=== PATIENT | female | born 1970 | race Caucasian/White ===

== ENCOUNTER 2021-11-02 15:45 | Emergency (ER) | payer SELFPAY ==
[2021-11-02] MEDS ORDERED: Acetaminophen/HYDROcodone 325-5 MG Tab PO ONE (16:06)
[2021-11-02] MEDS ORDERED: Ondansetron 4 MG Tab.DIS PO ONE (16:06)
--- NOTE | 2021-11-02 16:15 | EDM.PDOC ---
ED HPI GENERAL MEDICAL PROBLEM - General Chief Complaint: General Stated Complaint: FELL AND HIT THE GROUND Time Seen by Provider: 11/02/21 15:51 Source of Information: Reports: Patient History Limitations: Reports: No Limitations - History of Present Illness INITIAL COMMENTS - FREE TEXT/NARRATIVE: HISTORY AND PHYSICAL: History of present illness: Patient is a 51-year-old female who presents to the emergency room with complaints of left knee and ankle pain, right shoulder pain and thoracic back pain. Prior to arrival she was carrying a heavy box when her total caught on so mething causing her to trip and twisted wrong. She did not fall to the ground although fell onto some nearby boxes causing pain. She denies hitting her head or having any loss of consciousness. She denies any numbness, tingling, saddle paresthesia or weakness. Denies any urinary or fecal incontinence. Patient denies any fever, chills, headache, change in vision, syncope or near syncope. Denies any chest pain, shortness of breath or cough. Denies any GI or symptoms. No recent travel or sick contacts. Patient does not take any blood thinners or Review of systems: As per history of present illness and below otherwise all systems reviewed and negative. Past medical history: As per history of present illness and as reviewed below otherwise noncontributory. Surgical history: As per history of present illness and as reviewed below otherwise noncontributory. Social history: See social history for further information Family history: As per history of present illness and as reviewed below otherwise noncontributory. Physical exam: General: Well developed and well nourished 51 year old female. Alert and orientated x 3. Nontoxic in appearance and in no acute distress. Vital signs are stable and have been reviewed by me. Nursing notes were reviewed. HEENT: Atraumatic, normocephalic, pupils equal and reactive bilaterally, negative for conjunctival pallor or scleral icterus, mucous membranes moist, TMs normal bilaterally, throat clear, neck supple, nontender, trachea midline. No drooling or trismus noted. No meningeal signs. No hot potato voice noted. Lungs: Clear to auscultation bilaterally. No wheezes, rales, or rhonchi. Chest nontender. Normal work of breathing, no accessory muscles used. Heart: S1S2, regular rate and rhythm without overt murmur, gallops, or rubs. No JVD. No peripheral edema Abdomen: Soft, nondistended, nontender. Normoactive bowel sounds. Negative for masses or costovertebral tenderness. Pelvis is stable and nontender. C-spine/Back: No pinpoint vertebral tenderness upon palpation. No crepitus, step-offs or obvious deformities. Paraspinous muscular tenderness to thoracic region bilaterally. Patient is ambulatory into the emergency room without difficulty or deficit. Able to rock back on heels and walk on toes. Denies any urinary or fecal incontinence. Denies any numbness, tingling or saddle paresthesia. No concerns of serious infection, fracture or cord compression, or cauda equina syndrome. Deep tendon reflexes brisk bilaterally. Skin: Intact, warm, dry. No lesions or rashes noted. Hematologic: No petechiae or purpra. Mucosa appropriate color and normal nail bed color and refill. Extremities: Tenderness with palpation of the right shoulder girdle. Full range of motion. Tenderness with palpation of the left lateral knee and left lateral malleolus. No soft tissue swelling is noted. She moves all extremities per self without difficulty or deficits, negative for cords or calf pain. Neurovascular unremarkable. Neuro: Awake, alert, oriented. Cranial nerves II through XII unremarkable. Cerebellum unremarkable. Motor and sensory unremarkable throughout. Exam nonfocal. Psychiatric: Mood and affect are appropriate. Normal thought process. Answering questions appropriately. Please note that the patient was seen and evaluated during the 2019 SARS-CoV-2 novel coronavirus pandemic period. Community viral transmission is ongoing at time of this encounter and the emergency department is operating under pandemic response procedures. Medical Decision Making: Patient is a 51-year-old female who presents to the emergency room with complaints of thoracic back pain, left knee and ankle pain, right shoulder pain after falling. She states she did not fall to the ground although fell into some boxes "landing funny". Patient does have mild tenderness to the areas that are painful. We will do x-ray. She declines wanting a head CT adamantly stating she did not hit her head or have any loss of consciousness. X-ray of the thoracic spine is unremarkable. Negative left ankle and right shoulder x-ray without fracture or abnormalities. Knee x-ray shows no acute fracture or subluxation. Small supra patellar effusion. I have talked with the patient about today's findings, in addition to providing specific details for plan of care. Reassessment at the time of disposition demonstrates that the patient is in no acute distress. The patient is stable for discharge, counseling was provided and we discussed in great detail signs and symptoms that would prompt them to return to the Emergency Department. Medication, follow up and supportive care measures were reviewed and discussed. Voices understanding and is agreeable to plan of care. Denies any further questions or concerns at this time. Diagnostics: Thoracic x-ray, left knee x-ray, left ankle x-ray, right shoulder x-ray Therapeutics: Reji Linder Prescription: Diclofenac, Flexeril Impression: Fall Acute back pain Plan: 1. The medication you received today does cause drowsiness, so do not drive for the remaining day 2. When resting please lay on a flat firm surface. Limit your immobility to prevent muscle stiffness. Get up to ambulate/move around/gentle stretching multiple times throughout the day. May alternate heat and ice to the painful areas 3. Tylenol as needed for back pain. Otherwise take the prescribed Flexeril and diclofenac as directed. Diclofenac is an anti-inflammatory so do not take any additional NSAIDs with this medication, such as ibuprofen or Aleve. Flexeril as a muscle relaxant, this medication may cause drowsiness a do not take it will driving her needing to be functioning outside of the house. 4. Please follow-up with your primary care provider as we discussed. Return to the ED as needed and as discussed. Definitive disposition and diagnosis as appropriate pending reevaluation and review of above. Right Arm Pain Score (Numeric/FACES): 8 - Related Data Allergies Allergy/AdvReac Type Severity Reaction Status Date / Time No Known Allergies Allergy Verified 11/02/21 15:59 Home Meds: Home Meds Cyclobenzaprine [Flexeril] 10 mg PO TID PRN #21 tab 11/02/21 [Rx] Diclofenac Sodium [Voltaren] 75 mg PO BIDMEALS PRN #30 tab.cr 11/02/21 [Rx] Social & Family History - Caffeine Use Caffeine Use: Reports: None - Recreational Drug Use Recreational Drug Use: No ED ROS GENERAL - Review of Systems Review Of Systems: Comprehensive ROS is negative, except as noted in HPI. ED EXAM, GENERAL - Physical Exam Exam: See Below (See dictation) Course - Vital Signs Last Recorded V/S: Last Vital Signs Temp 98.5 F 11/02/21 15:56 Pulse 71 11/02/21 15:56 Resp 20 11/02/21 15:56 BP 154/82 H 11/02/21 15:56 Pulse Ox 97 11/02/21 15:56 - Orders/Labs/Meds Meds: Medications Discontinued Medications Generic Name Dose Route Start Last Admin Trade Name Freq PRN Reason Stop Dose Admin Hydrocodone Bitart/Acetaminophen 1 tab 11/02/21 16:06 11/02/21 16:14 Acetaminophen/Hydrocodone 325-5 Mg Tab PO 11/02/21 16:07 1 tab ONETIME ONE Administration Ondansetron HCl 4 mg 11/02/21 16:06 11/02/21 16:14 Ondansetron 4 Mg Tab.Dis PO 11/02/21 16:07 4 mg ONETIME ONE Administration Departure - Departure Time of Disposition: 17:35 Disposition: Home, Self-Care 01 Clinical Impression: Fall, Back pain - Discharge Information Prescriptions: Cyclobenzaprine [Flexeril] 10 mg PO TID PRN #21 tab PRN Reason: Muscle Spasm Diclofenac Sodium [Voltaren] 75 mg PO BIDMEALS PRN #30 tab.cr PRN Reason: Pain Instructions: Acute Back Pain, Adult Referrals: PCP,None [Primary Care Provider] - Forms: ED Department Discharge Additional Instructions: The following information is given to patients seen in the emergency department who are being discharged to home. This information is to outline your options for follow-up care. We provide all patients seen in our emergency department with a follow-up referral. The need for follow-up, as well as the timing and circumstances, are variable depending upon the specifics of your emergency department visit. If you don't have a primary care physician on staff, we will provide you with a referral. We always advise you to contact your personal physician following an emergency department visit to inform them of the circumstance of the visit and for follow-up with them and/or the need for any referrals to a consulting specialist. The emergency department will also refer you to a specialist when appropriate. This referral assures that you have the opportunity for follow-up care with a specialist. All of these measure are taken in an effort to provide you with optimal care, which includes your follow-up. Under all circumstances we always encourage you to contact your private physician who remains a resource for coordinating your care. When calling for follow-up care, please make the office aware that this follow-up is from your recent emergency room visit. If for any reason you are refused follow-up, please contact the [facility] Emergency Department at and asked to speak to the emergency department charge nurse. [facility] [address] [place] [address] [facility] [address] [place] [address] Thank you for choosing the [facility] emergency department in [place] for your medical needs today. It was a pleasure caring for you. Today you were seen in the emergency department for pain after fall. Your prescription was electronically sent to: 1. The medication you received today does cause drowsiness, so do not drive for the remaining day 2. When resting please lay on a flat firm surface. Limit your immobility to prevent muscle stiffness. Get up to ambulate/move around/gentle stretching multiple times throughout the day. May alternate heat and ice to the painful areas 3. Tylenol as needed for back pain. Otherwise take the prescribed Flexeril and diclofenac as directed. Diclofenac is an anti-inflammatory so do not take any additional NSAIDs with this medication, such as ibuprofen or Aleve. Flexeril as a muscle relaxant, this medication may cause drowsiness a do not take it will driving her needing to be functioning outside of the house. 4. Please follow-up with your primary care provider as we discussed. Return to the ED as needed and as discussed. Sepsis Event Note (ED) - Evaluation Sepsis Screening Result: No Definite Risk - Focused Exam Vital Signs: Vital Signs Temp Pulse Resp BP Pulse Ox 11/02/21 15:56 98.5 F 71 20 154/82 H 97
--- NOTE | 2021-11-02 17:27 | CR ---
Indication: Pain after fall Technique: Three views left ankle Comparison: None Findings: Bones: Alignment is normal. No fractures or bone lesions. Small posterior and inferior calcaneal enthesophytes. Joint spaces: Unremarkable. Soft tissues: Unremarkable. Impression: No acute abnormality. Dictated by Nancy Jose MD @ 11/02/2021 5:25:33 PM (Electronically Signed)
--- NOTE | 2021-11-02 17:29 | CR ---
Indication: Pain after fall Technique: Three views left knee Comparison: None Findings: Bones: Alignment is normal. No fractures or bone lesions. Small superior patellar enthesophyte. Joint spaces: Small suprapatellar effusion. Soft tissues: Unremarkable. Impression: No acute fracture or subluxation. Small suprapatellar effusion. Dictated by Nancy Jose MD @ 11/02/2021 5:27:20 PM (Electronically Signed)
--- NOTE | 2021-11-02 17:31 | CR ---
Indication: Pain after fall Technique: Three views right shoulder Comparison: None Findings: Bones: Alignment is normal. No fractures or bone lesions. Joint spaces: Mild degenerative changes in the acromioclavicular joint. Soft tissues: Unremarkable. Impression: No acute abnormality. Dictated by Nancy Jose MD @ 11/02/2021 5:29:41 PM (Electronically Signed)
--- NOTE | 2021-11-02 17:35 | CR ---
INDICATION: Pain after fall TECHNIQUE: Thoracic spine 3 view. COMPARISON: None FINDINGS: Bones: Alignment is normal. No fractures or significant bone lesions. Joints: Minimal degenerative disc changes. Soft tissues: Unremarkable. IMPRESSION: No acute fracture or subluxation. Dictated by Nancy Jose MD @ 11/02/2021 5:33:33 PM (Electronically Signed)
== END 2021-11-02 17:47 | disposition home or self-care (01) ==
LOC: MW.ED 15:45
DX: M54.6 Pain in thoracic spine (principal)
CPT/HCPCS: 72070; 73030; 73562; 73610; 99283; A9270

== ENCOUNTER 2021-11-12 10:14 | Emergency (ER) | payer OTHER ==
[2021-11-12] MEDS ORDERED: Ibuprofen 800 MG Tab PO ONE (10:59)
--- NOTE | 2021-11-12 11:39 | EDM.PDOC ---
ED HPI GENERAL MEDICAL PROBLEM - General Chief Complaint: General Stated Complaint: FELL AT WORK HURT SHOULDER Time Seen by Provider: 11/12/21 10:16 Source of Information: Reports: Patient History Limitations: Reports: No Limitations - History of Present Illness INITIAL COMMENTS - FREE TEXT/NARRATIVE: HISTORY AND PHYSICAL: History of present illness: Patient is a 51-year-old female who presents emergency room today with concern of right-sided rib, shoulder, and right finger ring injury that occurred yesterday. Patient states that she was working outside in the [employer] and s tepped outside of the [employer] and slipped. Patient states that she did not completely fall and used her right arm to brace herself against the [employer]. Patient states that since then, she has had pain of the right shoulder and right rib area that was pressed up against a [employer] and also pain of her right ring finger. Patient states that she has been able to move all of her extremities but states that she does have pain with movement of her right shoulder overhead so has not been doing this. Patient states that she did not hit her head or lose consciousness. Patient states she did take Flexeril last night and some ibuprofen last night with mild relief of symptoms. Denies any other resuscitative symptoms. Patient denies fever, chills, chest pain, shortness of breath, or cough. Denies headache, neck stiff ness, change in vision, syncope, or near syncope. Denies nausea, vomiting, abdominal pain, diarrhea, constipation, or dysuria. Has not noted any blood in urine or stool. Patient has been eating and drinking appropriately. Review of systems: As per history of present illness and below otherwise all systems reviewed and negative. Past medical history: As per history of present illness and as reviewed below otherwise noncontributory. Surgical history: As per history of present illness and as reviewed below otherwise noncontributory. Social history: See social history for further information Family history: As per history of present illness and as reviewed below otherwise noncontributory. Physical exam: General: Patient is alert, oriented, and in no acute distress. Patient sitting comfortably on exam table. Vitals stable and reviewed by me. HEENT: Atraumatic, normocephalic, pupils equal and reactive bilaterally, negative for conjunctival pallor or scleral icterus, mucous membranes moist, throat clear, neck supple, nontender, trachea midline. No drooling or trismus noted. No meningeal signs. No hot potato voice noted. Lungs: Clear to auscultation, breath sounds equal bilaterally, chest nontender. Heart: S1S2, regular rate and rhythm without overt murmur Abdomen: Soft, nondistended, nontender. Negative for masses or hepatosplenomegaly. Negative for costovertebral tenderness. Pelvis: Stable nontender. Genitourinary: Deferred. Rectal: Deferred. Skin: Intact, warm, dry. No lesions or rashes noted. Extremities: No obvious deformity of the complete right upper extremity. Patient has full range of motion of bilateral lower extremities and left upper extremity but does have limited range of motion of the right shoulder due to pain. Radial pulses grossly intact bilaterally with capillary refill less than 2 seconds. All compartments are soft of the complete right upper extremity. Patient does have tenderness to palpation of the distal fourth digit of the right but does have full range of motion of the affected digit. No edema, ecchymosis noted of the complete right upper extremity. Patient does have some tenderness to palpation of the right sided axillary rib area. No obvious deformity of the complete spine. No step-offs, crepitus, or point tenderness to palpation of the complete spine. Otherwise, atraumatic, negative for cords or c kelly pain. Neurovascular unremarkable. Neuro: Awake, alert, oriented. Cranial nerves II through XII unremarkable. Cerebellum unremarkable. Motor and sensory unremarkable throughout. Exam nonfocal. Medical Decision Making: Signs and symptoms that would prompt return to the ED thoroughly discussed with patient. Discussed importance for follow-up with a primary care provider. Voices understanding and is agreeable to plan of care. Denies any further questions or concerns at this time. Diagnostics: Right rib with chest, right shoulder, right hand Therapeutics: Ibuprofen, shoulder sling Prescription: None Impression: Right shoulder injury Right sided rib injury Finger injury, 4th digit, right Plan: 1. Rest, ice, elevate the affected extremity. You can apply ice 15 minutes on, 15 minutes off. 2. Tylenol and/or Ibuprofen as directed for pain management or discomfort. 3. Follow up with the primary care provider as discussed. Return to the ED as needed and as discussed. Definitive disposition and diagnosis as appropriate pending reevaluation and review of above. - Related Data Allergies Allergy/AdvReac Type Severity Reaction Status Date / Time No Known Allergies Allergy Verified 11/12/21 10:29 Home Meds: Home Meds Cyclobenzaprine [Flexeril] 10 mg PO TID PRN #21 tab 11/02/21 [Rx] Diclofenac Sodium [Voltaren] 75 mg PO BIDMEALS PRN #30 tab.cr 11/02/21 [Rx] Past Medical History - Past Health History Medical/Surgical History: Denies Medical/Surgical History Other Musculoskeletal History: Fell last week also last Friday[birth year]02[birth year]. Complaints of pain on Right shoulder, right sided back pain - Infectious Disease History Infectious Disease History: Reports: Chicken Pox - Past Surgical History Cardiovascular Surgical History: Reports: None Social & Family History - Tobacco Use Tobacco Use Status *Q: Current Every Day Tobacco User Years of Tobacco use: 20 Packs/Tins Daily: 1 - Caffeine Use Caffeine Use: Reports: Coffee, Tea - Recreational Drug Use Recreational Drug Use: No ED ROS GENERAL - Review of Systems Review Of Systems: Comprehensive ROS is negative, except as noted in HPI. ED EXAM, GENERAL - Physical Exam Exam: See Below (see dictation) Course - Vital Signs Last Recorded V/S: Last Vital Signs Temp 98.2 F 11/12/21 10:25 Pulse 82 11/12/21 10:25 Resp 18 11/12/21 10:25 BP 154/78 H 11/12/21 10:25 Pulse Ox 96 11/12/21 10:25 - Orders/Labs/Meds Orders: Active Orders 24 hr Category Date Time Status Communication Order [RC] STAT Care 11/12/21 11:40 Active Meds: Medications Discontinued Medications Generic Name Dose Route Start Last Admin Trade Name Jason PRN Reason Stop Dose Admin Ibuprofen 800 mg 11/12/21 10:59 11/12/21 11:22 Ibuprofen 800 Mg Tab PO 11/12/21 11:00 800 mg ONETIME ONE Administration Departure - Departure Time of Disposition: 12:32 Disposition: Home, Self-Care 01 Clinical Impression: Right shoulder injury, Rib injury, Finger injury - Discharge Information Referrals: PCP,None [Primary Care Provider] - Forms: ED Department Discharge Additional Instructions: The following information is given to patients seen in the emergency department who are being discharged to home. This information is to outline your options for follow-up care. We provide all patients seen in our emergency department with a follow-up referral. The need for follow-up, as well as the timing and circumstances, are variable depending upon the specifics of your emergency department visit. If you don't have a primary care physician on staff, we will provide you with a referral. We always advise you to contact your personal physician following an emergency department visit to inform them of the circumstance of the visit and for follow-up with them and/or the need for any referrals to a consulting specialist. The emergency department will also refer you to a specialist when appropriate. This referral assures that you have the opportunity for follow-up care with a specialist. All of these measure are taken in an effort to provide you with optimal care, which includes your follow-up. Under all circumstances we always encourage you to contact your private physician who remains a resource for coordinating your care. When calling for follow-up care, please make the office aware that this follow-up is from your recent emergency room visit. If for any reason you are refused follow-up, please contact the [facility] Emergency Department at and asked to speak to the emergency department charge nurse. [facility] [address] [place] [address] [place] [address] 1. Rest, ice, elevate the affected extremity. You can apply ice 15 minutes on, 15 minutes off. 2. Tylenol and/or Ibuprofen as directed for pain management or discomfort. 3. Follow up with the primary care provider as discussed. Return to the ED as needed and as discussed. Sepsis Event Note (ED) - Evaluation Sepsis Screening Result: No Definite Risk - Focused Exam Vital Signs: Vital Signs Temp Pulse Resp BP Pulse Ox 11/12/21 10:25 98.2 F 82 18 154/78 H 96 - My Orders Last 24 Hours: My Active Orders 11/12/21 11:40 Communication Order [RC] STAT - Assessment/Plan Last 24 Hours: My Active Orders 11/12/21 11:40 Communication Order [RC] STAT
--- NOTE | 2021-11-12 12:02 | CR ---
Indication: Trauma. Pain involving the index finger Technique: Three images of the right hand were acquired Comparison: None Findings: No visible fracture, dislocation or destructive process. Osteoarthritis involving primarily the 1st and 2nd carpometacarpal joint, the interphalangeal joint of the thumb and the distal interphalangeal joint of the 2nd through 5th digits. Impression: No visible acute fracture, dislocation or destructive process. No radiopaque foreign body. Osteoarthritis Dictated by Zac Stewart MD @ 11/12/2021 12:00:34 PM (Electronically Signed)
--- NOTE | 2021-11-12 12:04 | CR ---
INDICATION: Trauma with pain COMPARISON: None of this area TECHNIQUE: Single view of the chest as well as 2 additional images of the right ribcage. FINDINGS: TUBES AND LINES: None. HEART AND MEDIASTINUM: The heart size is normal. The mediastinal contour appears normal for patient age. LUNGS AND PLEURAL SPACES: The lungs appear normal.The pleural spaces are unremarkable. OSSEOUS STRUCTURES: Demineralized osseous structures. Degenerative changes of the spine and the incidentally visualized right shoulder joint. No visible fracture or destructive process involving the right rib cage IMPRESSION: 1. No evidence of active pulmonary disease. 2. No visible fracture or destructive process involving the right rib cage. 3. Degenerative changes as described Dictated by Zac Stewart MD @ 11/12/2021 12:03:31 PM (Electronically Signed)
--- NOTE | 2021-11-12 12:09 | CR ---
Indication: Fall, arm pain Comparison: None available. Technique: AP internal, axillary, and scapular-Y views right shoulder were obtained Findings: There is no displaced fracture or dislocation. There is moderate degenerative change of the acromioclavicular and glenohumeral joints. The soft tissues are unremarkable. Impression: Moderate degenerative change of the acromioclavicular and glenohumeral joints without acute osseous abnormality. Dictated by Navarro Cook MD @ 11/12/2021 12:08:14 PM (Electronically Signed)
== END 2021-11-12 12:54 | disposition home or self-care (01) ==
LOC: MW.ED 10:14
DX: S29.9XXA Unspecified injury of thorax, initial encounter (principal); S49.91XA Unspecified injury of right shoulder and upper arm, initial encounter; S69.91XA Unspecified injury of right wrist, hand and finger(s), initial encounter; Z72.0 Tobacco use; W01.0XXA Fall on same level from slipping, tripping and stumbling without subsequent striking against object, initial encounter
CPT/HCPCS: 71101; 73030; 73130; 99283; A9270

== ENCOUNTER 2022-03-14 10:27 | Day surgery (SDC) | payer BC ==
[~2022-03-14 10:27] MED LIST: Lactated Ringers 1,000 ML IV SCH; Midazolam 1 MG/ML 2 ML SDV ONE; Propofol 200 MG/20 ML SDV ONE; Sodium Chloride 0.9% 10 ML Syringe FLUSH PRN; Sodium Chloride 0.9% 2.5 ML Syringe FLUSH PRN; Sodium Chloride 0.9% 20 ML SDV IV PRN; fentaNYL 100 MCG/2 ML SDV ONE
[2022-03-14] MEDS ORDERED: Midazolam 1 MG/ML 2 ML SDV ONE (12:20)
[2022-03-14] MEDS ORDERED: Glycopyrrolate 0.2 MG/ML SDV ONE (12:43)
== END 2022-03-14 13:37 | disposition home or self-care (01) ==
LOC: MW.SDS 10:27
PROVIDERS: ATTEND Surgery
DX: R19.4 Change in bowel habit (principal); K95.09 Other complications of gastric band procedure; R13.10 Dysphagia, unspecified; F32.A Depression, unspecified; E55.9 Vitamin D deficiency, unspecified; F17.210 Nicotine dependence, cigarettes, uncomplicated; E66.9 Obesity, unspecified; K21.9 Gastro-esophageal reflux disease without esophagitis; Z82.49 Family history of ischemic heart disease and other diseases of the circulatory system; Z86.010 Personal history of colon polyps; Z91.040 Latex allergy status; Z79.899 Other long term (current) drug therapy; Z98.890 Other specified postprocedural states
CPT/HCPCS: 43239; 45380; J2250; J2704; J3010; J3490; J7120; 00813

== ENCOUNTER 2022-10-31 09:49 | Emergency (ER) | payer BC ==
[2022-10-31 10:48] LABS: CORONAVIRUS COVID-19 NAA NEGATIVE (NEGATIVE); INFLUENZA A NAA POSITIVE (NEGATIVE); INFLUENZA B NAA NEGATIVE (NEGATIVE); RESPIRATORY SYNCYTIAL VIR NAA NEGATIVE (NEGATIVE)
== END 2022-10-31 11:01 | disposition home or self-care (01) ==
LOC: MW.ED 09:49
DX: J10.1 Influenza due to other identified influenza virus with other respiratory manifestations (principal); E66.9 Obesity, unspecified; Z68.33 Body mass index [BMI] 33.0-33.9, adult; Z91.048 Other nonmedicinal substance allergy status; Z20.822 Contact with and (suspected) exposure to COVID-19
CPT/HCPCS: 0241U; 71045; 99283